=== PATIENT | female | born 1980 | race Caucasian/White ===

== ENCOUNTER 2016-08-15 19:58 | Inpatient (IN) | payer OTHER ==
[~2016-08-15] VITALS: Ht 149.9 cm; Wt 86.5 kg
[~2016-08-15 19:58] MED LIST changes: -BSP15 PO; -FLUO20CA36 PO; -GLC500 PO; -LAMO150T32 PO; -LBT100 PO; -LPT10 PO; -PRZ/40 PO
[2016-08-15] MEDS ORDERED: FENTANYL CITRATE INJ 50 MCG/1 ML 2 ML VIAL ONE (20:05)
[2016-08-15] MEDS ORDERED: LORAZEPAM 2 MG/ML 1 ML VIAL ONE (20:05)
[2016-08-15] MEDS ORDERED: SODIUM CHLORIDE 0.9% 1000ML 1,000 ML IV STA (20:15)
[2016-08-15] MEDS ORDERED: OPTIRAY 320 IV PRN (20:30)
[2016-08-15] MEDS ORDERED: DIPHTHERIA/TETANUS/PERTUSSIS 0.5 ML SYR/VIAL IM. ONE (20:30)
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
[2016-08-15] MEDS ORDERED: CEFAZOLIN SOD 1000MG/55 ML D5W IV STA (21:09)
[2016-08-15 21:11] LABS: HEMATOCRIT 33.8 % (37-47); MEAN CELL VOLUME 83.7 fL (80-100); MEAN CORPUSCULAR HGB CONC 33.4 g/dl (32-36); MEAN PLATELET VOLUME 8.8 fL (7.4-10.4); PLATELET COUNT 314 K/uL (130-400); RED BLOOD COUNT 4.04 M/uL (4.2-5.4); WHITE BLOOD COUNT 13.31 K/uL (4.8-10.8)
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
[2016-08-15] MEDS ORDERED: LBT100 PO (21:25)
[2016-08-15] MEDS ORDERED: LPT10 PO (21:25)
[2016-08-15] MEDS ORDERED: GLC500 PO (21:25)
[2016-08-15 21:29] LABS: BUN/CREATININE RATIO 20.4 (10-20); CALCIUM 8.5 mg/dl (8.5-10.1); CREATININE 0.78 mg/dl (0.60-1.20); POTASSIUM 3.6 mmol/L (3.5-5.1)
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
[2016-08-15 21:44] LABS: BASO % 0.3 %; BASO ABS # 0.04 K/uL (0-0.2); COMPLETE YES; EOS % 1.2 %; IG% 0.2 %; LYMPH % 14.5 %; LYMPH ABS # 1.93 K/uL (1.2-3.4); MONO % 10.2 %; NEUT % 73.6 %
[2016-08-15] MEDS ORDERED: FLUO20CA36 PO (21:49)
[2016-08-15] MEDS ORDERED: PRZ/40 PO (21:49)
[2016-08-15] MEDS ORDERED: BSP15 PO (21:49)
[2016-08-15] MEDS ORDERED: LAMO150T32 PO (21:49)
[2016-08-15] MEDS ORDERED: HYDROmorphone INJ 1 MG/ML SYR IV STA (22:17)
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
[2016-08-15] MEDS ORDERED: LORAZEPAM 2 MG/ML 1 ML VIAL IV PRN (23:45)
[2016-08-15] MEDS ORDERED: HYDROmorphone INJ 0.5 MG/0.5 ML SYR IV PRN (23:45)
[2016-08-15] MEDS ORDERED: MAGNESIUM HYDROXIDE SUSP 30 ML UDC PO PRN (23:45)
[2016-08-15] MEDS ORDERED: ALUMINUM/MAGNESIUM/SIMETH (MAALOX MAX) 30 ML UDC PO PRN (23:45)
[2016-08-15] MEDS ORDERED: POLYETHYLENE (MIRALAX) 17 GM PACK PO PRN (23:45)
[2016-08-15] MEDS ORDERED: LABETALOL HCL 100 MG TAB PO STA (23:49)
[2016-08-15] MEDS ORDERED: FLUOXETINE HCL 20 MG CAP PO STA (23:49)
[2016-08-15] MEDS ORDERED: BusPIRone 15 MG TAB PO STA (23:50)
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
[2016-08-16] MEDS ORDERED: HydrALAZINE HCL 20 MG/ML VIAL IV. PRN (00:45)
[2016-08-16] MEDS: HYDROmorphone INJ 1 MG/ML SYR IV PRN ×5 (01:00→13:44)
[2016-08-16] MEDS: ONDANSETRON INJ 2 MG/ML 2 ML VIAL IV PRN ×2 (01:00→16:25)
[2016-08-16 01:02] VITALS: O2SAT 97
[2016-08-16] MEDS ORDERED: LORAZEPAM INJ 0.5 MG in SYRINGE 0.75 ML IV PRN (02:15)
[2016-08-16] MEDS: SODIUM CHLOR 0.45% + 20MEQ KCL 1,000 ML IV SCH ×2 (02:26→08:43)
[2016-08-16 03:20] VITALS: BP 144/85; TEMP 36.6; Ht 149.9 cm; Wt 86.5 kg
[2016-08-16 07:29] VITALS: BP 141/83; PULSE 99; TEMP 36.9; O2SAT 94
--- NOTE | 2016-08-16 07:44 | DIAGNOSTIC IMAGING REPORT ---
RIGHT ANKLE CT CT DOSE: 1923.65 mGy.cm HISTORY: Right ankle fracture. Right ankle pain. TECHNIQUE: Multiaxial CT images of the right ankle were performed and reformatted in the sagittal and coronal plane without the use of contrast. COMPARISON: Right ankle 08/15/2016. FINDINGS: There is a heavily comminuted fracture involving the distal tibia with intra-articular extension. There is mild distraction of the distal tibial fragments. The tibial plafond is slightly impacted/depressed. There is 3 mm of medial displacement of the medial malleolus. There is also posterior angulation of the distal tibia and fracture through the posterior malleolus which demonstrates up to 5 mm of posterior displacement and mild overlap. There is also a comminuted and mildly displaced fracture involving the distal shaft of the fibula. The fragments demonstrate both medial and lateral displacement up to 5 mm. The bones of the foot are intact. Plantar and posterior calcaneal spurs. There is diffuse subcutaneous edema throughout the ankle. IMPRESSION: 1. Heavily comminuted and slightly impacted distal tibial fracture (type III pilon fracture) as described above. 2. Comminuted and displaced fracture through the distal shaft of the fibula. Electronically signed by: Alen Hanson M.D. 08/16/2016 7:42 AM Dictated Date/Time: 08/16/2016 7:33 AM
[2016-08-16] MEDS ORDERED: LABETALOL HCL 100 MG TAB PO SCH (09:00)
[2016-08-16] MEDS ORDERED: BusPIRone 15 MG TAB PO SCH (09:00)
[2016-08-16] MEDS ORDERED: FLUOXETINE HCL 20 MG CAP PO SCH ×2 (09:00→21:00)
--- NOTE | 2016-08-16 10:20 | Orthopedic Progress Note ---
Orthopedic Progress Note Date of Service Aug 16, 2016. Subjective Reports: complaints (mild right ankle pain), Denies: SOB, calf pain, chest pain , light headedness, nausea / vomiting Additional Notes: sitting in bed. Conversive. complains of right shoulder soreness. Objective N/V intact, splint C/D/I, A&O x3, toes mobile, CMS intact Right shoulder with good motion, no pain over clavicle or AC joint. No weakness with rotator cuff testing, but this does exacerbate her pain. Focal tenderness over proximal bicep tendon. Elbow benign. Date Time Temp Pulse Resp B/P Pulse Ox O2 Delivery O2 Flow Rate FiO2 08/16/16 08:08 Room Air 08/16/16 07:29 36.9 99 16 141/83 94 Room Air 08/16/16 03:20 36.6 18 144/85 Room Air 08/16/16 01:02 103 18 163/91 97 Room Air 08/16/16 00:35 102 08/15/16 23:28 98 18 144/85 97 Room Air 08/15/16 21:55 94 18 137/92 95 Room Air 08/15/16 20:41 97 Nasal Cannula 2.0 08/15/16 20:41 87 Room Air 08/15/16 20:32 36.6 92 20 160/99 97 Room Air Laboratory Results 24 Hours: Test 08/15/16 21:00 White Blood Count 13.31 K/uL Red Blood Count 4.04 M/uL Hemoglobin 11.3 g/dL Hematocrit 33.8 % Mean Corpuscular Volume 83.7 fL Mean Corpuscular Hemoglobin 28.0 pg Mean Corpuscular Hemoglobin Concent 33.4 g/dl Platelet Count 314 K/uL Mean Platelet Volume 8.8 fL Neutrophils (%) (Auto) 73.6 % Lymphocytes (%) (Auto) 14.5 % Monocytes (%) (Auto) 10.2 % Eosinophils (%) (Auto) 1.2 % Basophils (%) (Auto) 0.3 % Neutrophils # (Auto) 9.80 K/uL Lymphocytes # (Auto) 1.93 K/uL Monocytes # (Auto) 1.36 K/uL Eosinophils # (Auto) 0.16 K/uL Basophils # (Auto) 0.04 K/uL Assessment & Plan Assessment: Right ankle pilon fracture Plan: Spoke with pt about transfer to another facility Spoke with Dr. Turcios at [facility] and he is accepting. Spoke with [facility] for auth. #[id number] (Ryann and Dr. Tyrel Carpenter) Spoke with [facility] trauma service- No beds available. Also no current beds at [facility]. Spoke with pt and about transfer-prefer [facility]. will medicate prior to departure.
--- NOTE | 2016-08-16 10:35 | Discharge Instructions ---
Discharge Instructions Admission Reason for Admission: Fracture Of Distal End Of Fibula Discharge Discharge Diagnosis / Problem: Right ankle pilon fracture Discharge Goals Goal(s): Decrease discomfort, Improve function, Increase independence Activity Recommendations Activity Limitations: as noted below Non weight bearing, keep splint on . Current Hospital Diet Patient's current hospital diet: NPO Discharge Diet Recommended Diet: N/A Pending Studies Studies pending at discharge: no Laboratory Results Hemoglobin A1c Test 08/15/16 08:20 Range/Units Estimated Average Glucose 114 mg/dl Hemoglobin A1c 5.6 4.5-5.6 % Lipid Panel Test 08/15/16 08:20 Range/Units Triglycerides Level 80 0-150 mg/dl Cholesterol Level 175 0-200 mg/dl HDL Cholesterol 56 mg/dl LDL Cholesterol Direct 103 mg/dl Cholesterol/HDL Ratio 3.1 LDL Cholesterol, Calculated mg/dl Medical Emergencies . Who to Call and When: Medical Emergencies: If at any time you feel your situation is an emergency, please call 911 immediately. . Non-Emergent Contact Non-Emergency issues call your: Surgeon . "Provider Documentation" section prepared by Mark Beck PA-C. VTE Core Measure Inpt VTE Proph given/why not?: Magalys Logan, SCD's
[2016-08-16 11:08] VITALS: BP 142/88; PULSE 95; TEMP 37.1; O2SAT 93
[2016-08-16] MEDS ORDERED: ENOXAPARIN 30 MG/0.3 ML SYR SQ ONE (14:45)
[2016-08-16] MEDS ORDERED: NURSING VERBAL MED ORDER ONE (15:15)
[2016-08-16 15:22] LABS: HEMATOCRIT 32.7 % (37-47); MEAN CELL VOLUME 82.8 fL (80-100); MEAN CORPUSCULAR HEMOGLOBIN 27.8 pg (25-34); MEAN CORPUSCULAR HGB CONC 33.6 g/dl (32-36); MEAN PLATELET VOLUME 8.6 fL (7.4-10.4); PLATELET COUNT 295 K/uL (130-400); RED BLOOD COUNT 3.95 M/uL (4.2-5.4); WHITE BLOOD COUNT 11.46 K/uL (4.8-10.8)
[2016-08-16 15:28] VITALS: BP 136/89; PULSE 96; TEMP 37.2; O2SAT 98
[2016-08-16 15:39] LABS: PROTHROMBIN TIME (PATIENT) 10.7 SECONDS (9.0-12.0)
[2016-08-16 15:43] LABS: CREATININE 0.74 mg/dl (0.60-1.20)
[2016-08-16] MEDS ORDERED: MoRPHine SULFATE 4 MG/ML 1 ML CARP\\VIAL IV PRN (16:00)
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
== END 2016-08-16 19:00 | disposition short-term general hospital (02) | DRG 563 ==
LOC: ENRESERVTM → ENRESERVDT → EDBD 19:58 → C.EDB 19:59 → C.3E 23:37
PROVIDERS: ADMIT Hospitalist; ATTEND Internal Medicine
PROC: 0QSJXZZ Reposition Right Fibula, External Approach (ICD-10-PCS; principal; 2016-08-15)
PROC: 0QSGXZZ Reposition Right Tibia, External Approach (ICD-10-PCS; principal; 2016-08-15)
DX: S82.871A Displaced pilon fracture of right tibia, initial encounter for closed fracture (principal); S82.831A Other fracture of upper and lower end of right fibula, initial encounter for closed fracture; S00.33XA Contusion of nose, initial encounter; S20.212A Contusion of left front wall of thorax, initial encounter; S30.1XXA Contusion of abdominal wall, initial encounter; V49.49XA Driver injured in collision with other motor vehicles in traffic accident, initial encounter; Y92.410 Unspecified street and highway as the place of occurrence of the external cause; I10 Essential (primary) hypertension; E11.9 Type 2 diabetes mellitus without complications; E78.00 Pure hypercholesterolemia, unspecified; E78.5 Hyperlipidemia, unspecified; F31.9 Bipolar disorder, unspecified; F41.9 Anxiety disorder, unspecified; Z23 Encounter for immunization; Z79.84 Long term (current) use of oral hypoglycemic drugs; Z79.899 Other long term (current) drug therapy

== ENCOUNTER → 2016-08-15 | Outpatient (CLI) | payer OTHER ==
[~2016-08-15] MED LIST: APRI28 PO; BSP15 PO; FLUO20CA20 PO; FLUO20CA36 PO; GLC/500 PO; GLC500 PO; LABE100T23 PO; LAMO150T32 PO; LBT100 PO; LMC/150 PO; LPT10 PO; MTR600X PO; PRZ/40 PO; SPR25 PO
[2016-08-15 10:03] LABS: ALT/SGPT 31 U/L (12-78); AST/SGOT 20 U/L (15-37); BLOOD UREA NITROGEN 16 mg/dl (7-18); BUN/CREATININE RATIO 20.9 (10-20); CALCIUM 9.7 mg/dl (8.5-10.1); CARBON DIOXIDE 26 mmol/L (21-32); CHLORIDE 102 mmol/L (98-107); CHOLESTEROL 175 mg/dl (0-200); CREATININE 0.76 mg/dl (0.60-1.20); GLUCOSE 108 mg/dl (70-99); POTASSIUM 4.2 mmol/L (3.5-5.1); SODIUM 139 mmol/L (136-145); TRIGLYCERIDES 80 mg/dl (0-150); VERY LOW DENSITY LIPOPROT CALC 16 mg/dl
[2016-08-15 10:06] LABS: CHOLESTEROL/HDL RATIO 3.1; HDL CHOLESTEROL 56 mg/dl
[2016-08-15 10:41] LABS: ESTIMATED AVERAGE GLUCOSE 114 mg/dl; HA1C FLAG Normal (Normal)
[2016-08-16 10:06] LABS: C-REACTIVE PROT HIGHSEN 0.9 MG/L
== END | disposition home or self-care (01) ==
LOC: C.LAB 08:16
DX: E88.81 Metabolic syndrome and other insulin resistance (principal); I10 Essential (primary) hypertension; E78.5 Hyperlipidemia, unspecified

== ENCOUNTER → 2017-03-13 | Outpatient (CLI) | payer OTHER ==
[~2017-03-13] MED LIST changes: -APRI28 PO; +BSP15 PO; -FLUO20CA20 PO; +FLUO20CA36 PO; -GLC/500 PO; +GLC500 PO; -LABE100T23 PO; +LAMO150T32 PO; +LBT100 PO; -LMC/150 PO; +LPT10 PO; -MTR600X PO; +PRZ/40 PO
== END | disposition home or self-care (01) ==
LOC: C.LAB 15:31
PROVIDERS: ATTEND Nurse Practitioner
DX: S82.871D Displaced pilon fracture of right tibia, subsequent encounter for closed fracture with routine healing (principal); X58.XXXD Exposure to other specified factors, subsequent encounter